=== PATIENT | female | born 1960 | race Caucasian/White ===

== ENCOUNTER 2017-12-04 17:51 | Inpatient (IN) | payer OTHER ==
[~2017-12-04] VITALS: Ht 157.5 cm; Wt 77.1 kg
[2017-12-04] MEDS ORDERED: SYNTHROID88 MCG (18:27)
[2017-12-17] MEDS ORDERED: INTESTINEX680 M1 PO (15:45)
== END 2017-12-17 17:01 | DRG 330 ==
LOC: ER 17:51 → SEC-K 12-05 09:25 → SURG-SUITE 12-05 09:25
PROVIDERS: Surgery
PROC: BW21ZZZ Computerized Tomography (CT Scan) of Abdomen and Pelvis (ICD-10-PCS; 2017-12-05)
PROC: 0DN80ZZ Release Small Intestine, Open Approach (ICD-10-PCS; 2017-12-07)
PROC: 0WJG0ZZ Inspection of Peritoneal Cavity, Open Approach (ICD-10-PCS; 2017-12-07)
PROC: 0DQC0ZZ Repair Ileocecal Valve, Open Approach (ICD-10-PCS; principal; 2017-12-07 13:00)
PROC: 02HV33Z Insertion of Infusion Device into Superior Vena Cava, Percutaneous Approach (ICD-10-PCS; 2017-12-08)
PROC: 3E0436Z Introduction of Nutritional Substance into Central Vein, Percutaneous Approach (ICD-10-PCS; 2017-12-09)
DX: K56.51 Intestinal adhesions [bands], with partial obstruction (principal); K91.71 Accidental puncture and laceration of a digestive system organ or structure during a digestive system procedure; K91.89 Other postprocedural complications and disorders of digestive system; K56.0 Paralytic ileus; E86.0 Dehydration; E03.8 Other specified hypothyroidism; E78.00 Pure hypercholesterolemia, unspecified; Z85.43 Personal history of malignant neoplasm of ovary; E87.6 Hypokalemia; E83.42 Hypomagnesemia

== ENCOUNTER → 2018-04-26 | Emergency (ER) | payer OTHER ==
[~2018-04-26] VITALS: Ht 157.5 cm; Wt 74.8 kg
[~2018-04-26] MED LIST: INTESTINEX680 M1 PO; SYNTHROID88 MCG
== END | disposition home or self-care (01) ==
LOC: ER 22:27
DX: K52.9 Noninfective gastroenteritis and colitis, unspecified (principal); R10.32 Left lower quadrant pain